=== PATIENT | male | born 1960 | race Two or more races ===

== ENCOUNTER 2018-05-15 11:51 | Inpatient (IN) | payer OTHER ==
[~2018-05-15] VITALS: Ht 154.9 cm; Wt 93.0 kg
[2018-06-01] MEDS ORDERED: METFORMIN HCL500 MG PO (11:53)
[2018-06-01] MEDS ORDERED: PLAVIX75 MG PO (11:53)
[2018-06-01] MEDS ORDERED: DOXEPIN HCL150 MG PO (11:53)
[2018-06-01] MEDS ORDERED: ZOLOFT100 MG PO (11:54)
[2018-06-01] MEDS ORDERED: ATIVAN2 MG PO (11:54)
[2018-06-01] MEDS ORDERED: COZAAR100 MG PO (11:54)
[2018-06-01] MEDS ORDERED: RISPERDAL2 MG PO (11:54)
[2018-06-01] MEDS ORDERED: OMEGA 3 500 SO1 EACH PO (11:55)
== END 2018-06-13 12:04 | disposition home or self-care (01) | DRG 331 ==
LOC: O/R 06-08 05:30 → SURH 06-08 07:00
PROVIDERS: Surgery
PROC: 0DTP4ZZ Resection of Rectum, Percutaneous Endoscopic Approach (ICD-10-PCS; 2018-06-08)
PROC: 07TC4ZZ Resection of Pelvis Lymphatic, Percutaneous Endoscopic Approach (ICD-10-PCS; 2018-06-08)
PROC: 0DJD8ZZ Inspection of Lower Intestinal Tract, Via Natural or Artificial Opening Endoscopic (ICD-10-PCS; 2018-06-08)
PROC: 0DTN4ZZ Resection of Sigmoid Colon, Percutaneous Endoscopic Approach (ICD-10-PCS; principal; 2018-06-08 07:00)
DX: C19 Malignant neoplasm of rectosigmoid junction (principal); I11.9 Hypertensive heart disease without heart failure; G47.33 Obstructive sleep apnea (adult) (pediatric); E11.9 Type 2 diabetes mellitus without complications; F41.9 Anxiety disorder, unspecified; E66.01 Morbid (severe) obesity due to excess calories; Z86.73 Personal history of transient ischemic attack (TIA), and cerebral infarction without residual deficits